=== PATIENT | female | born 1955 ===

== ENCOUNTER 2022-02-09 18:25 | Inpatient (IN) | payer BC ==
[2022-02-09] MEDS ORDERED: Sodium Chloride 0.9% 10 ML Syringe FLUSH PRN (18:59)
[2022-02-09] MEDS ORDERED: Sodium Chloride 0.9% 1,000 ML IV SCH (19:15)
[2022-02-09] MEDS: Morphine 2 MG/ML SYRINGE IVPUSH PRN ×2 (19:39→21:44)
[2022-02-09] MEDS: Ondansetron 4 MG/2 ML SDV IVPUSH PRN (19:46)
[2022-02-10] MEDS: Morphine 2 MG/ML SYRINGE IVPUSH PRN ×2 (01:42→07:03)
[2022-02-10] MEDS: Ondansetron 4 MG/2 ML SDV IVPUSH PRN ×2 (01:45→08:08)
[2022-02-10] MEDS: Dextrose 5%-0.9% NaCl 1,000 ML IV SCH ×2 (02:49→13:49)
[2022-02-10] MEDS ORDERED: Ondansetron 4 MG/2 ML SDV ONE (07:51)
[2022-02-10] MEDS ORDERED: HYDROmorphone 2 MG/ML Syringe ONE ×3 (07:52→14:46)
[2022-02-10] MEDS ORDERED: Pantoprazole 40 MG Vial IVPUSH SCH (08:00)
[2022-02-10] MEDS ORDERED: Pantoprazole 80 MG in Sodium Chloride 0.9% 100 ML IV SCH (08:00)
[2022-02-10] MEDS ORDERED: Enoxaparin 40 MG/0.4 ML Syringe SUBCUT SCH (08:15)
[2022-02-10] MEDS: HYDROmorphone 2 MG/ML SDV IV PRN ×2 (11:53→14:46)
== END 2022-02-10 15:38 | DRG 282 ==
LOC: UNDOADMIN 18:25 → LB.MS 18:25
PROVIDERS: ADMIT Physician Assistant; ATTEND Physician Assistant
DX: K85.10 Biliary acute pancreatitis without necrosis or infection (principal); B19.9 Unspecified viral hepatitis without hepatic coma; R74.01 Elevation of levels of liver transaminase levels; E80.6 Other disorders of bilirubin metabolism; Z20.822 Contact with and (suspected) exposure to COVID-19
CPT/HCPCS: 36415; 80053; 80061; 82150; 83690; 85025; 87040; C9113; J1170; J1650; J2270; J2405; J3490; J7030; U0002